=== PATIENT | female | born 1995 ===

== ENCOUNTER 2017-01-26 20:51 | Emergency (ER) | payer SELFPAY ==
[2017-01-26 21:30] VITALS: O2SAT 99
[2017-01-26 23:59] VITALS: BP 120/80; PULSE 70; RESP 14; TEMP 98
== END 2017-01-26 23:59 | disposition home or self-care (01) ==
LOC: C.ER 20:51
DX: K64.8 Other hemorrhoids (principal); K62.5 Hemorrhage of anus and rectum